=== PATIENT | female | born 1960 | race Caucasian/White ===

== ENCOUNTER 2022-10-12 08:00 | Day surgery (SDC) | payer MEDICARE, MEDICAID ==
[2022-10-12] VITALS (10 sets, daily range): BP systolic 111–142; BP diastolic 69–83
[~2022-10-12] VITALS: Ht 167.6 cm; Wt 97.3 kg
[~2022-10-12 08:00] MED LIST: CARI250T PO; CLON-527 PO; COL100C PO; LISI-642 PO; METH-603 PO
[2022-10-12] MEDS ORDERED: KAVA200C PO (08:49)
[2022-10-12] MEDS ORDERED: [UNRECOGNIZED DRUG - CODE] PO (08:49)
[2022-10-12] MEDS ORDERED: OXCA150T14 PO (08:49)
[2022-10-12] MEDS ORDERED: NITR0.3T10 (08:49)
[2022-10-12] MEDS ORDERED: LORA10TA7 PO (08:49)
[2022-10-12] MEDS ORDERED: MONT10TA21 PO (08:49)
[2022-10-12] MEDS ORDERED: MELA1TAB25 SL (08:49)
[2022-10-12] MEDS ORDERED: ONDA4TAB12 PO (08:49)
[2022-10-12] MEDS ORDERED: FAMO-49 PO (08:49)
[2022-10-12] MEDS ORDERED: FLUT1BLS4 (08:49)
[2022-10-12] MEDS ORDERED: MULT-273 PO (08:49)
[2022-10-12] MEDS ORDERED: OXYC1TAB17 PO (08:49)
[2022-10-12] MEDS ORDERED: ALBU18HF2 INH (08:49)
[2022-10-12] MEDS ORDERED: OXYB5TAB16 PO (08:49)
[2022-10-12] MEDS ORDERED: METO5TAB85 PO (08:49)
[2022-10-12] MEDS ORDERED: ASPI-611 PO (08:49)
[2022-10-12] MEDS ORDERED: normal saline 1,000 ML IV SCH (08:50)
[2022-10-12] MEDS ORDERED: diphenhydrAMINE 25mg capsule PO PRN (08:50)
[2022-10-12 09:01] LABS: BASOPHILS % (AUTO) 0.7 % (0-1); EOSINOPHILS # (AUTO) 0.3 X10'3 (0-0.9); EOSINOPHILS % (AUTO) 6.6 % (0-6); HEMATOCRIT 32.9 % (35.0-45.0); HEMOGLOBIN 11.2 g/dl (12.0-16.0); LYMPHOCYTES # (AUTO) 0.9 X10'3 (1.1-4.8); LYMPHOCYTES % (AUTO) 18.9 % (21-51); MEAN CORPUSCULAR HEMOGLOBIN 31.2 PG (27.0-31.0); MEAN CORPUSCULAR HGB CONC 34.2 g/dL (33.0-36.5); MEAN CORPUSCULAR VOLUME 91.3 FL (78-98); MONOCYTES # (AUTO) 0.3 X10'3 (0-0.9); MONOCYTES % (AUTO) 6.7 % (2-12); NEUTROPHILS # (AUTO) 3.3 X10'3 (1.8-7.7); NEUTROPHILS % (AUTO) 67.1 % (42-75); PLATELET COUNT 223 X10'3 (140-440); RED CELL DISTRIBUTION WIDTH 13.8 % (11.5-14.5); WHITE BLOOD COUNT 4.9 X10'3 (4.5-11.0)
[2022-10-12 11:35] LABS: ALANINE AMINOTRANSFERASE 25 U/L (12-78); ALBUMIN 4.1 G/DL (3.4-5.0); ALBUMIN/GLOBULIN RATIO 1.5 (1.1-1.5); ALKALINE PHOSPHATASE 73 IU/L (46-116); ASPARTATE AMINO TRANSFERASE 16 U/L (10-37); BILIRUBIN,TOTAL 0.3 MG/DL (0.1-1.0); BLOOD UREA NITROGEN 12 MG/DL (7-18); BUN/CREATININE RATIO 11.5 (6.6-38.0); CALCIUM 8.4 MG/DL (8.5-10.1); CREATININE 1.04 MG/DL (0.40-0.90); GLUCOSE 82 MG/DL (70-104); POTASSIUM 4.2 MMOL/L (3.5-5.1); TOTAL CARBON DIOXIDE 27.3 MMOL/L (24-32); TOTAL PROTEIN 6.9 G/DL (6.4-8.2); eGFR 54 ML/MIN
[2022-10-12 11:40] LABS: SODIUM 137 MMOL/L (135-145)
[2022-10-12] MEDS ORDERED: nitroGLYCERIN-Tridil 50MG/D5W 250 ML IV ONE (11:57)
[2022-10-12] MEDS ORDERED: heparin 1,000unit/ml 10ml vial 10 ML ONE (11:58)
[2022-10-12] MEDS ORDERED: verapamil 2.5 mg/ml inj IV ONE (11:58)
[2022-10-12] MEDS ORDERED: fentaNYL/PF 50MCG/1 ML 2ML syringe ONE (11:58)
[2022-10-12] MEDS ORDERED: midazolam 1 mg/ML 2ml injection ONE ×4 (11:58→12:44)
[2022-10-12] MEDS ORDERED: iohexol 350 MG/ML 50ML vial IV ONE (11:58)
[2022-10-12] MEDS ORDERED: LIDOcaine 1% 30ml preserv. free vial ONE (11:58)
[2022-10-12] MEDS ORDERED: iohexol 350MG/ML 100ml bottle IV ONE (11:58)
[2022-10-12 13:15] LABS: ANION GAP 8 (8-16); CHLORIDE 102 MMOL/L (99-107)
[2022-10-12] MEDS ORDERED: ondansetron/PF 4mg/2ml inj IV PRN (13:35)
[2022-10-12] MEDS ORDERED: normal saline 1000ml 1,000 ML IV SCH (13:35)
[2022-10-12] MEDS ORDERED: HYDROcodone/acetaminophen 10/325mg tab PO PRN (13:35)
[2022-10-12] MEDS ORDERED: proCHLORperazine 10 MG/2 ml inj IV PRN (13:35)
[2022-10-12] MEDS ORDERED: HYDROcodone/acetaminophen 5mg/325mg tablet PO PRN (13:35)
== END 2022-10-12 17:00 | disposition home or self-care (01) ==
LOC: SSTAY O 08:00
PROVIDERS: ATTEND Internal Medicine Cardiovascular Disease
DX: R94.39 Abnormal result of other cardiovascular function study (principal); R07.89 Other chest pain; I25.10 Atherosclerotic heart disease of native coronary artery without angina pectoris; I10 Essential (primary) hypertension; J44.9 Chronic obstructive pulmonary disease, unspecified; M19.90 Unspecified osteoarthritis, unspecified site; B19.20 Unspecified viral hepatitis C without hepatic coma; F41.9 Anxiety disorder, unspecified; F32.9 Major depressive disorder, single episode, unspecified; F43.10 Post-traumatic stress disorder, unspecified; F17.210 Nicotine dependence, cigarettes, uncomplicated; Z98.890 Other specified postprocedural states; Z79.899 Other long term (current) drug therapy
CPT/HCPCS: 36415; 80053; 83735; 84443; 85025; 85610; 93005; 93458; 99152; 99153; C1760; C1769; C1894; J1644; J2250; J3010; J3490; J7030; Q0163; Q9967; A4620